=== PATIENT | male | born 1970 | race American Indian/Alaskan Native ===

== ENCOUNTER 2021-04-16 06:18 | Emergency (ER) | payer MEDICARE ==
[2021-04-16] MEDS ORDERED: ASPIRIN 325 MG TAB PO ONE (08:13)
[2021-04-16] MEDS ORDERED: IPRATROPIUM/ALBUTEROL SULFATE 3 ML AMPUL.NEB IH ONE (08:14)
[2021-04-16] MEDS ORDERED: SODIUM CHLORIDE 0.9% 500 ML 500 ML IV ONE ×2 (08:15→08:16)
--- NOTE | 2021-04-16 08:22 | Emergency Department Report ---
HPI - General Chief Complaint: Chest Pain Time Seen by Provider: 04/16/21 07:50 - HPI HPI: 50-year-old male with history of hypertension, CAD, DM 2, and COPD presents complaining of 3 days of chest and respiratory symptoms which he attributes to his COPD. He describes progressive development of chest congestion/tightness, dry cough, and shortness of breath. He states that he has a nebulizer at home but has been out of albuterol. He states he was able to borrow some albuterol from a friend to give him a couple of treatments but does not have enough. His last treatment was just prior to arrival today. He also says he has had increased swelling in his bilateral lower extremities. He denies any associated fever/chills, headache, vision change, neck pain, abdominal pain, nausea/vomiting, focal weakness, sensory changes, or any other complaints. No known sick contacts. There are no known aggravating or alleviating factors. He is fully vaccinated against COVID-19 and has received a booster. He is an active smoker. ED Past Medical Hx - Past Medical History Hx Hypertension: Yes Hx Heart Attack/AMI: Yes Hx Diabetes: Yes Hx COPD: Yes - Surgical History Past Surgical History?: No Additional Surgical History: foot surgery. hand surgery - Social History Smoking Status: Current Every Day Smoker - Medications Home Medications: Home Medications Medication Instructions Recorded Confirmed Last Taken Type Albuterol Sulfate [Albuterol 0.63% 0.63 mg IH TID PRN #30 vial 04/16/21 Unknown Rx NEBS] Albuterol Sulfate [Proventil Hfa] 6.7 gm IH Q6H PRN #1 inh 04/16/21 Unknown Rx ED Review of Systems ROS: Stated complaint: BRONCHITIS Other details as noted in HPI Comment: All other systems reviewed and negative Constitutional: denies: chills, fever Eyes: denies: eye pain, vision change ENT: denies: throat pain, congestion Respiratory: cough, shortness of breath Cardiovascular: chest pain, edema. denies: palpitations, syncope Endocrine: other (dry mouth) Gastrointestinal: denies: abdominal pain, nausea, vomiting Musculoskeletal: denies: back pain, arthralgia Skin: denies: rash, lesions Neurological: denies: headache, weakness, numbness Physical Exam - Physical Exam Vital Signs: Vital Signs 04/16/21 06:52 Temperature 98.9 F Pulse Rate 102 H Respiratory 22 Rate Blood Pressure 147/92 O2 Sat by Pulse 99 Oximetry Physical Exam: GENERAL: Well developed and well nourished. No acute distress HEAD: Normocephalic. No obvious signs of trauma. ENT: Dry mucous membranes. EYES: Extraocular movements are intact. Pupils are equal round and reactive to light bilaterally NECK: Supple. Full ROM is intact. Trachea is midline. LUNGS: Tachypneic but not in respiratory distress. Equal chest rise bilate rally. Scattered coarse breath sounds bilaterally but no wheezes or rales appreciated. CARDIOVASCULAR: Slightly tachycardic but with regular rhythm. No murmurs or rubs. VASCULAR: Cap refill < 2 seconds. 2+ pitting edema of the bilateral lower extremities ABDOMEN: Abdomen is soft and nondistended. There is no significant tenderness, guarding or rebound. SKIN: Skin is warm and dry NEURO: Patient is awake, alert, and oriented. ship liner II-XII grossly intact. No focal deficits. Normal motor and sensory exam throughout. Normal speech. MUSCULOSKELETAL: No obvious deformities. No significant tenderness. Normal ROM throughout. BACK/SPINE: No costovertebral angle tenderness. ED Course Vital Signs 04/16/21 06:52 Temperature 98.9 F Pulse Rate 102 H Respiratory 22 Rate Blood Pressure 147/92 O2 Sat by Pulse 99 Oximetry ED Medical Decision Making - Lab Data Result diagrams: 04/16/21 08:35 04/16/21 08:35 Lab Results 04/16/21 04/16/21 04/16/21 Range/Units 08:35 08:35 08:35 WBC 10.1 (4.5-11.0) K/mm3 RBC 4.77 (3.65-5.03) M/mm3 Hgb 13.6 (11.8-15.2) gm/dl Hct 42.7 (35.5-45.6) % MCV 90 (84-94) fl MCH 29 (28-32) pg MCHC 32 (32-34) % RDW 14.7 (13.2-15.2) % Plt Count 337 (140-440) K/mm3 Lymph % (Auto) 15.4 (13.4-35.0) % [place] % (Auto) 7.2 (0.0-7.3) % Eos % (Auto) 1.0 (0.0-4.3) % Baso % (Auto) 0.2 (0.0-1.8) % Lymph # (Auto) 1.6 (1.2-5.4) K/mm3 [place] # (Auto) 0.7 (0.0-0.8) K/mm3 Eos # (Auto) 0.1 (0.0-0.4) K/mm3 Baso # (Auto) 0.0 (0.0-0.1) K/mm3 Seg Neutrophils % 76.2 H (40.0-70.0) % Seg Neutrophils # 7.7 (1.8-7.7) K/mm3 PT 12.5 (12.2-14.9) Sec. INR 0.84 L (0.87-1.13) APTT 29.5 (24.2-36.6) Sec. D-Dimer 414.07 H (0-234) ng/mlDDU Sodium 137 (137-145) mmol/L Potassium 4.1 (3.6-5.0) mmol/L Chloride 101.2 (98-107) mmol/L Carbon Dioxide 25 (22-30) mmol/L Anion Gap 15 mmol/L BUN 9 (9-20) mg/dL Creatinine 0.9 (0.8-1.3) mg/dL Estimated GFR > 60 ml/min BUN/Creatinine Ratio 10 % Glucose 293 H (75-100) mg/dL Calcium 10.0 (8.4-10.2) mg/dL Magnesium (1.7-2.3) mg/dL Total Bilirubin 0.50 (0.1-1.2) mg/dL AST 15 (5-40) units/L ALT 23 (7-56) units/L Alkaline Phosphatase 107 (35-129) units/L Troponin T < 0.010 (0.00-0.029) ng/mL NT-Pro-B Natriuret Pep (0-450) pg/mL Total Protein 7.9 (6.3-8.2) g/dL Albumin 4.6 (3.9-5) g/dL Albumin/Globulin Ratio 1.4 % TSH (0.270-4.200) mlU/mL 04/16/21 04/16/21 04/16/21 Range/Units 08:35 08:35 11:50 WBC (4.5-11.0) K/mm3 RBC (3.65-5.03) M/mm3 Hgb (11.8-15.2) gm/dl Hct (35.5-45.6) % MCV (84-94) fl MCH (28-32) pg MCHC (32-34) % RDW (13.2-15.2) % Plt Count (140-440) K/mm3 Lymph % (Auto) (13.4-35.0) % [place] % (Auto) (0.0-7.3) % Eos % (Auto) (0.0-4.3) % Baso % (Auto) (0.0-1.8) % Lymph # (Auto) (1.2-5.4) K/mm3 [place] # (Auto) (0.0-0.8) K/mm3 Eos # (Auto) (0.0-0.4) K/mm3 Baso # (Auto) (0.0-0.1) K/mm3 Seg Neutrophils % (40.0-70.0) % Seg Neutrophils # (1.8-7.7) K/mm3 PT (12.2-14.9) Sec. INR (0.87-1.13) APTT (24.2-36.6) Sec. D-Dimer (0-234) ng/mlDDU Sodium (137-145) mmol/L Potassium (3.6-5.0) mmol/L Chloride (98-107) mmol/L Carbon Dioxide (22-30) mmol/L Anion Gap mmol/L BUN (9-20) mg/dL Creatinine (0.8-1.3) mg/dL Estimated GFR ml/min BUN/Creatinine Ratio % Glucose (75-100) mg/dL Calcium (8.4-10.2) mg/dL Magnesium 1.90 (1.7-2.3) mg/dL Total Bilirubin (0.1-1.2) mg/dL AST (5-40) units/L ALT (7-56) units/L Alkaline Phosphatase (35-129) units/L Troponin T < 0.010 (0.00-0.029) ng/mL NT-Pro-B Natriuret Pep 21.66 (0-450) pg/mL Total Protein (6.3-8.2) g/dL Albumin (3.9-5) g/dL Albumin/Globulin Ratio % TSH 2.170 (0.270-4.200) mlU/mL - EKG Data -: EKG Interpreted by Me - EKG Data 04/16/21 09:17 Normal sinus rhythm. Normal axis. Normal intervals. There are Q waves noted in the inferior and lateral leads. Nonspecific T wave inversions. There are no significant ST segment abnormalities. - Radiology Data Radiology results: report reviewed - Medical Decision Making 50-year-old male with history of CAD, diabetes, and COPD presenting with 3 days of chest tightness/congestion, dry cough, shortness of breath. Patient states that he has a nebulizer at home but has been out of his albuterol. He is used couple doses of albuterol 3 borrowed from a friend. He is afebrile and with normal vital signs with the exception of elevated heart rate. On physical examination, he has dry mucous membranes. He is tachypneic but not in res piratory distress. He has scattered coarse breath sounds but no rales or wheezes appreciated. He has 2+ pitting edema the bilateral lower extremities. Although it is possible that the patient's symptoms represent an exacerbation of his COPD, given the chest tightness, his history of CAD, and the lack of wheezing heard on exam, we will perform more broad work-up with a full set of labs to include D-dimer given that his [place] PE score is 1.5, corresponding to low risk. We will obtain EKG, chest x-ray. We will give gentle fluids, full- strength aspirin, and duo nebs. We will hold off on steroids at this point but if the patient develops wheezing or other signs of COPD exacerbation we will give steroids at that time Chest x-ray reveals no acute abnormalities. Labs have resulted and reveal no significant leukocytosis or anemia. Creatinine is within normal range and there are no significant electrolyte abnormalities. Troponin is negative. BNP is within normal limits. Glucose is elevated at 293. We will give 1 L of IV fluids On repeat assessment after albuterol, the patient's respiratory status is unchanged. Lung auscultation reveals only scattered coarse breath sounds. We will continue to observe Troponin is negative x2. D-dimer is positive. CTA of the chest has been ordered to assess for evidence of pulmonary embolism. CTA of the chest reveals no acute abnormalities and no signs of pulmonary embolism. On repeat assessment at this time, the patient remains without any wheezing or prolonged expiratory phase. I discussed with the patient the likely diagnosis of URI as well as the fact that he has elevated blood sugar and dehydration. He admits to me that he has not been taking his prescribed diabetes pills regularly. I discussed with him the importance of taking these medications to keep his blood sugar within control and he expressed understanding and agreement. In addition, we discussed options moving forward given that he feels he may be having a COPD exacerbation. Because of the tendency of steroids to cause hyperglycemia we will give 1 dose of Decadron now and discharge the patient with refills for his albuterol nebulizer and an albuterol MDI. He will follow up with a primary care doctor for closer monitoring of his blood sugars. He will drink plenty of fluids and return to the emergency department for any worsening symptoms or new health concerns. Critical care attestation.: If time is entered above; I have spent that time in minutes in the direct care of this critically ill patient, excluding procedure time. ED Disposition Clinical Impression: COPD exacerbation, URI (upper respiratory infection), Hyperglycemia, Dehydration Disposition: 01 HOME / SELF CARE / HOMELESS Is pt being admited?: No Condition: Stable Instructions: Chronic Obstructive Pulmonary Disease Exacerbation, Upper Respiratory Infection, Adult, Hyperglycemia, Blood Glucose Monitoring, Adult, Chronic Obstructive Pulmonary Disease (ED) Additional Instructions: Please take your diabetes medication exactly as prescribed. Drink plenty of fluids and use your albuterol nebulizer 3 times daily for the next 2 days and then as needed. You should follow-up with a primary care doctor within the next few days to discuss proper management of your elevated blood sugar. Return to the emergency department for any worsening symptoms, significant chest pain, or any other new health concerns. Prescriptions: Albuterol Sulfate [Albuterol 0.63% NEBS] 0.63 mg IH TID PRN #30 vial PRN Reason: Wheezing Albuterol Sulfate [Proventil Hfa] 6.7 gm IH Q6H PRN #1 inh PRN Reason: Wheezing Referrals: [facility] [Provider Group] - 2-3 Days HEART Score - HEART Score History: Slightly suspicious EKG: Non-specific Age: 45-65 Risk factors: 1-2 risk factors Troponin: < normal limit HEART Score: 3
--- NOTE | 2021-04-16 08:44 | XRay Report ---
CHEST 2 VIEWS INDICATION: Chest Pain. COMPARISON: none FINDINGS: Support devices: None. Heart: Within normal limits. Lungs/pleura: No acute air space or interstitial disease. No pneumothorax. Additional findings: None. IMPRESSION: Unremarkable chest films. Signer Name: Gary Chambers Jr, MD Signed: 04/16/2021 8:40 AM Workstation Name: [id number]
[2021-04-16 09:19] LABS: Basophils % (Auto) 0.2 % (0.0-1.8); Eosinophils # (Auto) 0.1 K/mm3 (0.0-0.4); Hematocrit 42.7 % (35.5-45.6); Hemoglobin 13.6 gm/dl (11.8-15.2); Lymphocytes # (Auto) 1.6 K/mm3 (1.2-5.4); Lymphocytes % (Auto) 15.4 % (13.4-35.0); Mean Corpuscular HGB Conc 32 % (32-34); Mean Corpuscular Volume 90 fl (84-94); Monocytes # (Auto) 0.7 K/mm3 (0.0-0.8); Monocytes % (Auto) 7.2 % (0.0-7.3); Platelet Count 337 K/mm3 (140-440); Red Blood Count 4.77 M/mm3 (3.65-5.03); Red Cell Distribution Width 14.7 % (13.2-15.2)
[2021-04-16 09:40] LABS: Alanine Aminotransferase 23 units/L (7-56); Albumin 4.6 g/dL (3.9-5); BUN/Creatinine Ratio 10; Blood Urea Nitrogen 9 mg/dL (9-20); Hemolysis Index 1
[2021-04-16] MEDS ORDERED: SODIUM CHLORIDE 0.9% 1000 ML 1,000 ML IV ONE (10:00)
[2021-04-16 10:09] LABS: Partial Thromboplastin Time 29.5 Sec. (24.2-36.6)
[2021-04-16 10:15] LABS: INR 0.84 (0.87-1.13)
--- NOTE | 2021-04-16 13:56 | Cat Scan Report ---
CT angio chest INDICATION / CLINICAL INFORMATION: cough, SOB, positive d-dimer, assess for PE OMNI 350 100ML. TECHNIQUE: Axial CT images were obtained through the chest after injection of IV contrast. 3 plane MIP and/or 3D reconstructions were produced. All CT scans at this location are performed using CT dose reduction f or ALARA by means of automated exposure control. COMPARISON: X-ray from same day FINDINGS: PULMONARY ARTERIES: No pulmonary emboli. HEART: No significant abnormality. MEDIASTINUM / TED: No significant abnormality. LUNGS: Lungs are clear No pleural effusion. No pneumothorax. ADDITIONAL FINDINGS: None. UPPER ABDOMEN: No acute findings. SKELETAL STRUCTURES: No significant osseous abnormality. IMPRESSION: 1. No CT evidence for pulmonary embolism. 2. No acute findings. Signer Name: Delvin Cotto MD Signed: 04/16/2021 1:52 PM Workstation Name: [id number]
[2021-04-16] MEDS ORDERED: dexAMETHasone 4 MG/ML VIAL IV ONE (14:01)
[2021-04-16 14:41] VITALS: BP 151/90
--- NOTE | 2021-04-17 11:41 | Electrocardiograph Report ---
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
== END 2021-04-16 14:40 | disposition home or self-care (01) ==
LOC: ED 06:18
DX: J44.1 Chronic obstructive pulmonary disease with (acute) exacerbation (principal); J06.9 Acute upper respiratory infection, unspecified; E11.65 Type 2 diabetes mellitus with hyperglycemia; E86.0 Dehydration; F17.200 Nicotine dependence, unspecified, uncomplicated; I10 Essential (primary) hypertension
CPT/HCPCS: 36415; 71046; 71275; 80053; 83735; 83880; 84443; 84484; 85025; 85379; 85610; 85730; 93005; 93010; 94640; 96360; 99284; J7030; Q9967; 94644; Q0162

== ENCOUNTER 2021-07-05 17:16 | Emergency (ER) | payer MEDICARE | END 2021-07-05 18:40 | disposition left against medical advice (07) | LOC: ED 17:16 | DX: M25.559 Pain in unspecified hip (principal); Z53.21 Procedure and treatment not carried out due to patient leaving prior to being seen by health care provider ==